=== PATIENT | female | born 1945 | race Caucasian/White ===

== ENCOUNTER 2018-08-17 07:18 | Outpatient (CLI) | payer OTHER | END 2018-08-17 07:26 | disposition home or self-care (01) | LOC: RAD 07:18 | DX: M25.511 Pain in right shoulder (principal) | CPT/HCPCS: 73221 ==

== ENCOUNTER 2019-07-10 20:30 | Emergency (ER) | payer OTHER ==
[~2019-07-10] VITALS: Ht 157.5 cm; Wt 45.4 kg
[2019-07-10] MEDS ORDERED: FOSAMAX70 MG PO (21:02)
[2019-07-10] MEDS ORDERED: VENTOLIN HFA18 GM IH (21:02)
[2019-07-10] MEDS ORDERED: NORVASC5 MG PO (21:03)
[2019-07-10] MEDS ORDERED: VITAMIN D32000 UNIT PO (21:03)
[2019-07-10] MEDS ORDERED: MEGESTROL ACETA40 MG PO (21:04)
[2019-07-10] MEDS ORDERED: SPIRIVA RESPIMAT4 GM IH (21:04)
[2019-07-10] MEDS ORDERED: CALTRATE 600+D1 EAC1 PO (21:04)
== END 2019-07-11 08:06 | disposition home or self-care (01) ==
LOC: ER 20:30
DX: K43.9 Ventral hernia without obstruction or gangrene (principal); R10.11 Right upper quadrant pain

== ENCOUNTER 2022-11-09 15:09 | Emergency (ER) | payer OTHER ==
[~2022-11-09] VITALS: Ht 162.6 cm; Wt 47.6 kg
[~2022-11-09 15:09] MED LIST: CALTRATE 600+D1 EAC1 PO; FOSAMAX70 MG PO; MEGESTROL ACETA40 MG PO; NORVASC5 MG PO; SPIRIVA RESPIMAT4 GM IH; VENTOLIN HFA18 GM IH; VITAMIN D32000 UNIT PO
[2022-11-09] MEDS ORDERED: DOVATO 50-3001 EACH PO (15:32)
[2022-11-09] MEDS ORDERED: TIVICAY50 MG PO (15:34)
[2022-11-09] MEDS ORDERED: VASOTEC5 MG PO (15:34)
== END 2022-11-09 22:33 | disposition left against medical advice (07) ==
LOC: ER 15:09
DX: R41.82 Altered mental status, unspecified (principal); Z91.013 Allergy to seafood; Z20.822 Contact with and (suspected) exposure to COVID-19